=== PATIENT | female | born 1990 | race Two or more races ===

== ENCOUNTER 2019-07-11 21:27 | Emergency (ER) | payer SELFPAY ==
[~2019-07-11] VITALS: Ht 157.5 cm; Wt 73.7 kg
[2019-07-11] MEDS ORDERED: SODIUM CHLORIDE FLUSH 10ML SYR IVF ONE (23:30)
[2019-07-11] MEDS ORDERED: KETOROLAC 30 MG/1 ML IVPush ONE (23:30)
[2019-07-11] MEDS ORDERED: PROCHLORPERAZINE 5 MG/ML, 2ML IVPush ONE (23:30)
[2019-07-11] MEDS ORDERED: SUMATRIPTAN 6MG/0.5ML SQ ONE ×2 (23:30→23:34)
[2019-07-11] MEDS ORDERED: DIPHENHYDRAMINE 50 MG/ML, 1ML IVPush ONE (23:30)
[2019-07-11] MEDS ORDERED: PROCHLORPERAZINE 5 MG/ML, 2ML ONE (23:34)
[2019-07-11] MEDS ORDERED: KETOROLAC 30 MG/1 ML ONE (23:35)
[2019-07-11] MEDS ORDERED: DIPHENHYDRAMINE 50 MG/ML, 1ML ONE (23:35)
[2019-07-11 23:42] LABS: BASOPHILS # (AUTO) 0.04 x10^3/uL (0-0.1); BASOPHILS % (AUTO) 0 % (0-1); EOSINOPHILS # (AUTO) 0.22 x10^3/uL (0-0.4); EOSINOPHILS % (AUTO) 2 % (1-7); LYMPHOCYTES # (AUTO) 3.12 x10^3/uL (1-3.4); LYMPHOCYTES % (AUTO) 28 % (22-44); MD NO; MEAN CORPUSCULAR HEMOGLOBIN 29.2 pg (27.0-34.8); MEAN CORPUSCULAR HGB CONC 33.3 g/dL (32.4-35.8); MEAN CORPUSCULAR VOLUME 87.8 fL (80-100); MEAN PLATELET VOLUME 6.8 fL (7.4-10.4); MONOCYTES # (AUTO) 0.51 x10^3/uL (0.2-0.8); MONOCYTES % (AUTO) 5 % (2-9); NEUTROPHILS # (AUTO) 7.14 x10^3/uL (1.8-6.8); NEUTROPHILS % (AUTO) 65 % (42-75); PLATELET COUNT 328 x10^3/uL (130-400); RED BLOOD COUNT 4.33 x10^6/uL (3.82-5.3); RED CELL DISTRIBUTION WIDTH 13.6 % (9.6-15.2)
[2019-07-11 23:54] LABS: ALBUMIN 3.9 g/dL (3.4-5.0); ANION GAP 7 mmol/L (5-15); CALCIUM 7.9 mg/dL (8.5-10.1); CHLORIDE 98 mmol/L (98-107); CREATININE 0.63 mg/dL (0.55-1.02)
[2019-07-12] MEDS ORDERED: LIDOCAINE-MPF 1%, 5ML ONE (01:38)
--- NOTE | 2019-07-12 01:56 | NUR ---
PT instructed to lay flat for at least [address] GREEN POST LUMBAR PUNCTURE. PT RESTING IN BED WATCHING TV
[2019-07-12 02:16] LABS: GLUCOSE, CSF 55 mg/dL (40-80); TOTAL PROTEIN,CSF 22 mg/dL (15-45)
[2019-07-12 03:25] VITALS: BP 98/50
== END 2019-07-12 03:27 | disposition home or self-care (01) ==
LOC: ED 07-12 03:10
DX: G43.C1 Periodic headache syndromes in child or adult, intractable (principal); B34.9 Viral infection, unspecified; Z87.891 Personal history of nicotine dependence
CPT/HCPCS: 36415; 62270; 70450; 80048; 82040; 82945; 84157; 84703; 85025; 87070; 87081; 87205; 87252; 87880; 89051; 96372; 96374; 96375; 99284; J0780; J1200; J1885; J3030

== ENCOUNTER 2019-10-07 19:00 | Emergency (ER) | payer SELFPAY ==
[~2019-10-07] VITALS: Ht 157.5 cm; Wt 59.5 kg
--- NOTE | 2019-10-07 19:28 | NUR ---
FIRST CONTACT WITH PT. PT REPORTS A HEADACHE 06/15 PT ALSO C/O RIGHT SIDED DENTAL PAIN/JAW PAIN. PT'S AOX4. RESPS EVEN AND UNLABORED.
--- NOTE | 2019-10-07 19:39 | NUR ---
WARM BLANCKET PROVIDED AT THIS TIME.
--- NOTE | 2019-10-07 20:09 | NUR ---
EDMD AT BEDSIDE TO EVALUATE AT THIS TIME.
[2019-10-07] MEDS ORDERED: FAMOTIDINE 20 MG/2 ML IV ONE (20:30)
[2019-10-07] MEDS ORDERED: PROCHLORPERAZINE 5 MG/ML, 2ML IV ONE (20:30)
[2019-10-07] MEDS ORDERED: KETOROLAC 30 MG/1 ML IVPush ONE (20:30)
[2019-10-07] MEDS ORDERED: DIPHENHYDRAMINE 50 MG/ML, 1ML IVPush ONE (20:30)
[2019-10-07] MEDS ORDERED: SODIUM CHLORIDE FLUSH 10ML SYR IVF ONE (20:30)
[2019-10-07] MEDS ORDERED: SODIUM CHLORIDE 0.9% 1,000ML IVBOLUS ONE (20:30)
[2019-10-07] MEDS ORDERED: FAMOTIDINE 20 MG/2 ML ONE (20:42)
[2019-10-07] MEDS ORDERED: KETOROLAC 30 MG/1 ML ONE (20:42)
[2019-10-07] MEDS ORDERED: DIPHENHYDRAMINE 50 MG/ML, 1ML ONE (20:42)
[2019-10-07] MEDS ORDERED: PROCHLORPERAZINE 5 MG/ML, 2ML ONE (20:42)
--- NOTE | 2019-10-07 20:58 | NUR ---
PT MEDICATED PER EMAR. PT TOLERATED WELL.
--- NOTE | 2019-10-07 21:07 | NUR ---
NS INFUSING AT THIS TIME. PT TOLERATED WELL. PT'S AOX4. RESPS EVEN AND UNLABORED.
--- NOTE | 2019-10-07 21:18 | NUR ---
warm blancket provided at this time. pt sleeping in [facility]. resps even and unlabored.
[2019-10-07 22:33] VITALS: BP 99/53
--- NOTE | 2019-10-07 22:33 | NUR ---
pt sleeping in [facility]. resps even and unlabored. bp/spo2 monitors in place. call light within reach.
--- NOTE | 2019-10-07 23:30 | NUR ---
Patient given discharge instructions and they have confirmed that they understand the instructions.
== END 2019-10-07 23:31 | disposition home or self-care (01) ==
LOC: ED 20:45
DX: G43.009 Migraine without aura, not intractable, without status migrainosus (principal); K08.89 Other specified disorders of teeth and supporting structures; R11.2 Nausea with vomiting, unspecified; M54.2 Cervicalgia
CPT/HCPCS: 96361; 96374; 96375; 99283; J0780; J1200; J1885; J3490; J7030

== ENCOUNTER 2019-11-16 09:14 | Emergency (ER) | payer SELFPAY ==
[~2019-11-16] VITALS: Ht 157.5 cm; Wt 61.0 kg
--- NOTE | 2019-11-16 09:41 | NUR ---
Pt reports cough w/ SOB & intermittent fevers since Wednesday. Pt reports associated rib pain d/t coughing. Pt has been assessed by MENG Monteiro, no needs at this time, WCTM.
[2019-11-16 10:04] LABS: BASOPHILS # (AUTO) 0.03 x10^3/uL (0-0.1); BASOPHILS % (AUTO) 1 % (0-1); EOSINOPHILS # (AUTO) 0.09 x10^3/uL (0-0.4); EOSINOPHILS % (AUTO) 2 % (1-7); LYMPHOCYTES # (AUTO) 2.36 x10^3/uL (1-3.4); LYMPHOCYTES % (AUTO) 38 % (22-44); MD NO; MEAN CORPUSCULAR HEMOGLOBIN 28.6 pg (27.0-34.8); MEAN CORPUSCULAR HGB CONC 33.4 g/dL (32.4-35.8); MEAN CORPUSCULAR VOLUME 85.5 fL (80-100); MEAN PLATELET VOLUME 7.2 fL (7.4-10.4); MONOCYTES # (AUTO) 0.29 x10^3/uL (0.2-0.8); MONOCYTES % (AUTO) 5 % (2-9); NEUTROPHILS # (AUTO) 3.46 x10^3/uL (1.8-6.8); NEUTROPHILS % (AUTO) 56 % (42-75); PLATELET COUNT 320 x10^3/uL (130-400); RED BLOOD COUNT 4.83 x10^6/uL (3.82-5.3); RED CELL DISTRIBUTION WIDTH 14.4 % (9.6-15.2)
[2019-11-16 10:10] LABS: RAPID INFLUENZA A Negative (Negative); RAPID INFLUENZA B Negative (Negative)
[2019-11-16 10:14] LABS: ALANINE AMINOTRANSFERASE 19 U/L (12-78); ALBUMIN 4.1 g/dL (3.4-5.0); ANION GAP 4 mmol/L (5-15); CALCIUM 8.7 mg/dL (8.5-10.1); CHLORIDE 111 mmol/L (98-107); CREATININE 0.69 mg/dL (0.55-1.02)
[2019-11-16 10:19] LABS: ALKALINE PHOSPHATASE 58 U/L (45-117); BILIRUBIN,TOTAL 0.4 mg/dL (0.2-1.0); TOTAL PROTEIN 7.5 g/dL (6.4-8.2)
[2019-11-16] MEDS ORDERED: DEXAMETHASONE 4 MG TABLET ONE (10:43)
[2019-11-16 10:48] VITALS: BP 116/88
[2019-11-16] MEDS ORDERED: DEXAMETHASONE 4 MG TABLET PO ONE (11:00)
== END 2019-11-16 10:53 | disposition home or self-care (01) ==
LOC: ED 10:47
DX: J06.9 Acute upper respiratory infection, unspecified (principal); G43.909 Migraine, unspecified, not intractable, without status migrainosus
CPT/HCPCS: 36415; 71046; 80053; 84703; 85025; 87400; 99284